=== PATIENT | male | born 1950 | race Caucasian/White ===

== ENCOUNTER → 2021-08-06 | Outpatient (CLI) | payer MEDICARE, BC ==
--- NOTE | 2021-08-06 10:54 | CTL ---
EXAMINATION TYPE: CT Low Dose Lung DATE OF EXAM ORDERED: 08/06/2021 HISTORY: 70-year-old male C8 7.891, personal history of tobacco use. Lung cancer screening CT DLP: 57.[address] CTDI: 1.4 mGy Automated exposure control for dose reduction was used. SCREENING VISIT: Baseline COMPARISON: None TECHNIQUE: Low dose computed tomography scan was performed through the chest with coronal and sagitta l reconstructions. CT DIAGNOSTIC QUALITY: Satisfactory FINDINGS: The heart is normal size without pericardial effusion. Three-vessel coronary artery calcifications ar e present. Ascending aorta borderline aneurysmal at 4.0 cm. Mild atherosclerotic arch calcifications with conven tional arch vessel branching anatomy. Mild aneurysm upper descending thoracic aorta at 3.2 cm. Mild a neurysmal distal half descending thoracic aorta to 3.1 cm. Borderline sized 1 cm precarinal lymph node, probably reactive. Otherwise, no thoracic lymphadenopath y by CT size criteria. Nodularity in the superior left upper lobe measuring up to 9 mm. Refer to axial image 50, 61, 74, 72, 89, 110, and 115. Some of these areas are somewhat ill-defined, possible infectious/inflammatory sebas ology. 4 mm nodule along the minor fissure probably subpleural lymph node, axial image 183. Additional right upper lobe nodularity measuring up to 6 mm. Refer to axial image 48, 49, 77, 83, and 102. Again, some of these are somewhat ill-defined. 5 mm superior segment right lower lobe pulmonary nodule, axial image 140. There is biapical pleural-parenchymal scarring. Background mild to moderate upper lung predominant ce ntrilobular emphysema. Some patchy posterior right basilar opacity, image 24. Correlate for any sympt oms of an early pneumonia. Visualized upper abdomen shows a tiny hilar splenule. Bones: Slight dextroconvex curvature of the upper thoracic spine. IMPRESSION: 1. Scattered pulmonary nodules, most numerous in the upper lobes measuring up to 9 mm on the left and 6 mm on the right. Most of these are ill-defined and an infectious/inflammatory etiology is favored. Three-month follow-up low-dose CT to reassess. 2. COPD with mild to moderate emphysema. Recommend smoking cessation. Some patchy opacity in the post erior right base is also noted. Correlate to exclude symptoms of an early pneumonia. 3. CAD with 3 vessel coronary artery calcifications. 4. Aneurysmal thoracic aorta; ascending measuring up to 4.0 cm and descending measuring up to 3.[address] LUNG RAD AND CT CHEST RECOMMENDATION: Lung-Rad 4A Suspicious: Follow-up 3 month LDCT or PET/CT may be used when there is a > 8 mm solid component.
== END | disposition home or self-care (01) ==
LOC: RADCTMAIN 08:10
PROVIDERS: ATTEND Family Medicine
DX: Z12.2 Encounter for screening for malignant neoplasm of respiratory organs (principal); J43.9 Emphysema, unspecified; I25.10 Atherosclerotic heart disease of native coronary artery without angina pectoris; Z87.891 Personal history of nicotine dependence
CPT/HCPCS: 71271

== ENCOUNTER 2021-08-25 11:01 | Day surgery (SDC) | payer MEDICARE, BC ==
[2021-08-25] MEDS ORDERED: LACTATED RINGERS 1,000 ML IV ONE (11:45)
[2021-08-25 11:54] VITALS: TEMP 98
[2021-08-25] MEDS ORDERED: PROPOFOL 10 MG/ML 20 ML VIAL IV ONE (12:32)
[2021-08-25] MEDS ORDERED: LIDOCAINE 2% INJ 20 MG/ML (2 ML VIAL) ONE (12:32)
[2021-08-25] MEDS ORDERED: LIDOCAINE 2% INJ 20 MG/ML INTRATRACH ONE (12:40)
--- NOTE | 2021-08-25 12:52 | P.PCN ---
Date of Procedure: 08/25/21 Preoperative Diagnosis: Pulmonary nodules, pneumonia, bronchiectasis Postoperative Diagnosis: As above Procedure(s) Performed: #1 bronchoscopy, #2 bronchoalveolar lavage of right upper lobe and left upper lobe Anesthesia: MAC Surgeon: Darwin Perkins Estimated Blood Loss (ml): 0 Condition: stable Disposition: same day Indications for Procedure: As above Operative Findings: As below Description of Procedure: Patient prepared and draped in the usual fashion informed consent THE PATIENT PROCEDURE EXPLAINED TO THE PATIENT AND FAMILY AT LENGTH. PATIENT HAS LOW-DOSE COMPUTED TOMOGRAPHY SCAN POSITIVE FOR MULTIPLE BILATERAL UPPER LOBE PULMONARY NODULES AND BRONCHIECTASIS WITH PROMINENT INTERSTITIUM PROCEDURE WAS DONE TO EVALUATE FOR DEMONSTRATING INFECTIOUS PROCESS. Fiberoptic bronchoscope passed to the right nares the vocal cords were inspected they were normal structure and function tip of the scope was has beyond the vocal cords trachea was normal pearly noe respiratory secretions bilaterally were present sections clean, airway mucosa is normal no endobronchial mass or lesion was identified and no bleeding source is seen him a liver bronchoscope a rash on the right upper lobe apical segment BAL was performed followed by left upper lobe apical posterior segment lavage was done patient tolerated procedure well no complication noted. Inspection was done and right upper lobe middle lobe and lower lobe along with subsegment followed by left upper lobe lingular lobe and lower lobe with subsegment no endobronchial mass lesion identified patient tolerated procedure well no complication noted
[2021-08-25 12:58] VITALS: PULSE 70
[2021-08-25 13:33] VITALS: BP 105/66; RESP 20
== END 2021-08-25 13:37 | disposition home or self-care (01) ==
LOC: ORWHC2ENDO 11:01
PROVIDERS: ATTEND Internal Medicine Sleep Medicine
DX: J18.9 Pneumonia, unspecified organism (principal); J47.9 Bronchiectasis, uncomplicated; R91.8 Other nonspecific abnormal finding of lung field; I25.10 Atherosclerotic heart disease of native coronary artery without angina pectoris; I10 Essential (primary) hypertension; F03.90 Unspecified dementia, unspecified severity, without behavioral disturbance, psychotic disturbance, mood disturbance, and anxiety; F17.210 Nicotine dependence, cigarettes, uncomplicated; Z79.899 Other long term (current) drug therapy; Z88.5 Allergy status to narcotic agent; Z82.49 Family history of ischemic heart disease and other diseases of the circulatory system
CPT/HCPCS: 87798 ×3; 87496; 87498; 87529; 88108; 88305; 87252; 87502; 87634; 87070; 87205; 87116; 87102; 87077; 87186; 87206; 87281; 31624; J2001 ×2; J2704

== ENCOUNTER → 2021-08-28 | Outpatient (CLI) | payer MEDICARE, BC ==
--- NOTE | 2021-08-28 15:51 | PE ---
Nuclear medicine PET/CT HISTORY: Solitary pulmonary nodule Patient received 11.9 mCi F-18 FDG intravenously and delayed scanning was performed from the skull ba se to the mid thighs. A localization and attenuation correction CT scan was performed. Correlation to CT scan of the chest 08/06/2021 Average mediastinal uptake SUV 1.8, average liver uptake SUV 2.3 Chest and neck: There is no supraclavicular or cervical adenopathy. There are areas of brown fat upta ke. The right upper lobe there is a bandlike area of density present without discrete mass, SUV only appr oximately 2-2.5. In the left upper lobe similar area is present SUV 2.0. There is no suspicious uptak e associated with nodules described on prior low-dose chest CT. No pleural pericardial effusion. There is no mediastinal, axillary, or hilar adenopathy. Anterior to the heart uptake is present with some associated inflammatory change consistent with pneumonia. There are coronary artery calcificatio ns. ABDOMEN: There is no retroperitoneal adenopathy or ascites. No evident liver mass or suspicious uptak e. Prostate is enlarged. No pelvic adenopathy. Osseous structures show no suspicious uptake. Degenerative disc changes are present in the lower lumb ar spine. IMPRESSION: No suspicious uptake is evident, correlate for possible pneumonia. Consider follow-up the [facility] in 6-12 months to assess for stability of lung nodules.
== END | disposition home or self-care (01) ==
LOC: RADXRMAIN 07:47
PROVIDERS: ATTEND Family Medicine
DX: R91.1 Solitary pulmonary nodule (principal)
CPT/HCPCS: 78815; A9552

== ENCOUNTER → 2021-10-01 | Outpatient (CLI) | payer MEDICARE, BC ==
--- NOTE | 2021-10-01 13:05 | MR ---
EXAMINATION TYPE: MR brain wo con DATE OF EXAM: 10/01/2021 COMPARISON: NONE HISTORY: Memory loss, altered mental status. TECHNIQUE: T1-weighted sagittal, T2, FLAIR, and diffusion axial, and T2 coronal coronal views of the brain are submitted. FINDINGS: There is no evidence of acute ischemia. Mild changes of chronic sinusitis. Orbits are symmetric. Cran iocervical junction maintained. Sella turcica has a normal appearance. There is moderate generalized degenerative change with a slightly greater Central and frontal lobe co mponent. Faint diffuse periventricular as well as multiple focal areas of abnormal signal are seen th roughout the white matter which is nonspecific but most typical of remote white matter ischemia. IMPRESSION: 1. Moderate degenerative change with a slightly greater Central and frontal lobe component. Correlate clinically to exclude a small component of normal pressure hydrocephalus. 2. There is mild changes of suspected remote ischemic white matter change.
== END | disposition home or self-care (01) ==
LOC: RADMRIMAIN 10:27
PROVIDERS: ATTEND Psychiatry & Neurology Neurology
DX: I67.9 Cerebrovascular disease, unspecified (principal); G31.9 Degenerative disease of nervous system, unspecified
CPT/HCPCS: 70551